=== PATIENT | male | born 1960 | race Caucasian/White ===

== ENCOUNTER → 2022-10-09 | Outpatient (CLI) | payer BC ==
[~2022-10-09] MED LIST: BARIUM SULFATE 176 GM SUSP.RECON ONE; BARIUM SULFATE(VOLUMEN) 450 ML ORAL.SUSP ONE
== END | disposition home or self-care (01) ==
LOC: RAD 08:29
DX: K44.9 Diaphragmatic hernia without obstruction or gangrene (principal); E66.01 Morbid (severe) obesity due to excess calories
CPT/HCPCS: 74246; Z7610